=== PATIENT | male | born 1965 | race African-American/Black ===

== ENCOUNTER → 2018-02-21 | Day surgery (SDC) | payer OTHER ==
[~2018-02-21] MED LIST: BUPIVACAINE HCL 0.5 % INJ/PF 30 ML SDV ONE; LIDOCAINE 1% INJ-PF (10 MG/ML) 30 ML SDV ONE; LIDOCAINE 2% INJ (20 MG/ML) 20 ML MDV ONE; METHYLPREDNISOLONE ACETATE INJ 40 MG/1 ML ML ONE
--- NOTE | 2018-02-21 11:33 | Operative Report ---
PREOPERATIVE DIAGNOSIS: Lumbar Spondylosis without myelopathy POSTOPERATIVE DIAGNOSIS: Lumbar Spondylosis without myelopathy PROCEDURE: Radiofrequency Ablation of medial branches - RT L4 dorsal primary ramus of L5. LT L4 Dorsal primary ramus of L5. DATE OF PROCEDURE: 02/21/2018 ANESTHESIA: Local COMPLICATIONS: None CONSENT: A full description of the procedure was provided including benefits as well as possible complications. All questions were answered and informed consent was given and signed. ASA guidelines for fasting were verified prior to sedation. PROCEDURE IN DETAIL The patient was brought into the fluoroscopy suite and positioned into the prone position on the fluoroscopy table and allowed to adjust to a position of comfort. A grounding pad was placed on the Left thigh. The lumbar region was widely prepped with a chloraprep solution, allowed to air dry and draped in standard sterile surgical fashion. Local anesthesia was provided by 1 mL of 1% lidocaine delivered with a 25 g needle. A 17g 75 mm radiofrequency introducer needle was placed to the planned anatomic targets guided with intermittent fluoroscopy with a perpendicular approach to terminally place at the junction of the superior articular process and the transverse process of the RIGHT L5 and the base of the sacral ala on the RIGHT for the L5 medial branch nerve. The stylets were removed and radiofrequency probes with a 4mm active tip were then inserted. Needle tip position of the probes was verified in the AP, oblique, and lateral views. At each site, the medial branch nerve was stimulated at 2 Hz to a maximum 1-2 volts determined to finalize safe needle and electrode placement. The patient was awake and responsive during this portion of the procedure. Each target was anesthetized with 1-2 mL of 2% lidocaine for anesthesia for lesioning and then each target was lesioned at 80 degrees Celsius for 2 minutes and 30 seconds. Tissue impedences were noted to be between 250 and 500 Ohms. Electrodes and were then removed and 1mL of a solution containing 40mg depomedrol + 0.5% bupivacaine was infiltrated through the needles. The needles were subsequently removed. Attention was then turned to the opposite side where the procedure was performed in the exact same fashion. Bandages placed over the needle placement sites, the patient then returned to the supine position on a stretcher and transported to the recovery room without hemodynamic, neurologic, or allergic reactions. Fluoroscopic images were printed for hard copy recording and digitally archived. POST PROCEDURE EVALUATION: The patient was comfortable in the recovery room. The patient is aware that pain may worsen before remitting and 4 - 6 weeks may be required prior to the onset of pain relief. IMPRESSION: 1. Technically successful Bilateral L4 L5 medial branch radiofrequency neurotomy for denervation bilaterally without complication. 2. RTC in 2 weeks. 3. Estimated Blood Loss: none
== END ==
LOC: RAD 09:31
PROVIDERS: ATTEND Pain Medicine Interventional Pain Medicine
PROC: 3E0T3TZ Introduction of Destructive Agent into Peripheral Nerves and Plexi, Percutaneous Approach (ICD-10-PCS; principal; 2018-02-21)
DX: M47.816 Spondylosis without myelopathy or radiculopathy, lumbar region (principal)
CPT/HCPCS: 64635 ×2; 64636 ×2; J3490 ×3; J1020

== ENCOUNTER 2019-01-26 18:49 | Emergency (ER) | payer OTHER | END 2019-01-26 23:00 | disposition left against medical advice (07) | LOC: ER 18:49 | DX: Z53.21 Procedure and treatment not carried out due to patient leaving prior to being seen by health care provider (principal); M79.676 Pain in unspecified toe(s) ==

== ENCOUNTER 2019-01-27 07:09 | Emergency (ER) | payer OTHER ==
--- NOTE | 2019-01-27 08:06 | ER Document Report ---
ED General - General Chief Complaint: Toe Injury Stated Complaint: TOE PAIN Time Seen by Provider: 01/27/19 07:36 Primary Care Provider: NORRIS MCGRAW MD [ACTIVE STAFF] - Follow up as needed TRAVEL OUTSIDE OF THE [place] IN LAST 30 DAYS: No - HPI Notes: Patient presents to the emergency department for evaluation of right toe pain. It has been going on for the last several days. He states his been so bad he has been limping. He states he feels as if it is locking up, but it is not actually locked up. He denies any injuries. No fevers or chills. No warmth. No tenderness to light palpation. No history of gout. - Related Data Allergies/Adverse Reactions: No Known Allergies Allergy (Verified 01/27/19 07:10) Past Medical History - General Information source: Patient - Social History Smoking Status: Never Smoker Family History: Reviewed & Not Pertinent Past Surgical History: Reports: Hx Orthopedic Surgery - pec muscle surgery Review of Systems - Review of Systems Constitutional: No symptoms reported EENT: No symptoms reported Cardiovascular: No symptoms reported Respiratory: No symptoms reported Gastrointestinal: No symptoms reported Genitourinary: No symptoms reported Musculoskeletal: See HPI Skin: No symptoms reported Neurological/Psychological: No symptoms reported Physical Exam - Vital signs Vitals: Temp Pulse Resp BP Pulse Ox 98.6 F 77 16 157/96 H 98 01/27/19 07:14 01/27/19 07:14 01/27/19 07:14 01/27/19 07:14 01/27/19 07:14 Interpretation: Hypertensive - Notes Notes: Patient is awake and alert, no acute distress. Exam is limited to the area of chief complaint. Examination of the right lower extremity is no obvious signs of trauma. No edema, no posterior calf tenderness. Dorsalis pedis and posterior tibial pulse are 2+. Sensation is intact, capillary refill is brisk. Very minimal tenderness to palpation of the first metatarsal phalangeal joint, and pain is reproduced with flexion. No pallor, no rubor. Capillary refill is brisk. Course - Re-evaluation Re-evalutation: 01/27/19 09:54 Patient presents emergency department for evaluation of first metatarsophalangeal joint pain. His findings are not consistent with gout so imaging was ordered. Imaging reveals degenerative changes. We will send him home on anti-inflammatories. Given his age we will send on Mobic. Told to wear supportive shoes. He is to follow-up with primary care, return to emergency department for worsening or new concerning symptoms. - Vital Signs Vital signs: Temp Pulse Resp BP Pulse Ox 98.6 F 69 16 136/91 H 97 01/27/19 07:14 01/27/19 09:49 01/27/19 07:14 01/27/19 09:49 01/27/19 09:49 Discharge - Discharge Clinical Impression: Osteoarthritis of first metatarsophalangeal (MTP) joint of right foot Condition: Stable Disposition: HOME, SELF-CARE Instructions: Osteoarthritis ([facility]) Additional Instructions: Wear supportive shoes. Take medication as prescribed, preferably with food. Follow-up with your doctor next week. Return to the emergency department for worsening or new concerning symptoms. Referrals: NORRIS MCGRAW MD [ACTIVE STAFF] - Follow up as needed
--- NOTE | 2019-01-27 08:25 | RADIOLOGY REPORT (SQ) ---
EXAM DESCRIPTION: FOOT RIGHT COMPLETE COMPLETED DATE/TIME: 01/27/2019 8:04 am REASON FOR STUDY: pain 1st MTP COMPARISON: None. NUMBER OF VIEWS: Three views. TECHNIQUE: AP, lateral and oblique radiographic images acquired of the right foot. LIMITATIONS: None. FINDINGS: MINERALIZATION: Normal. BONES: No acute fracture or dislocation. No worrisome bone lesions. JOINTS: No effusions. There is mild arthrosis of the right 1st metatarsophalangeal joint with subcho ndral cyst formation. SOFT TISSUES: No soft tissue swelling. No foreign body. OTHER: No other significant finding. IMPRESSION: No fracture or dislocation of the right foot. There is mild arthrosis of the right 1st metatarsophalangeal joint with degenerative subchondral cyst formation. TECHNICAL DOCUMENTATION: JOB ID: [id number] [employer]- All Rights Reserved Reading location - IP/workstation name: [email or web address]
[2019-01-27 09:50] VITALS: BP 136/91
== END 2019-01-27 10:21 | disposition home or self-care (01) ==
LOC: ER 07:09
DX: M19.071 Primary osteoarthritis, right ankle and foot (principal); M25.571 Pain in right ankle and joints of right foot
CPT/HCPCS: 99283

== ENCOUNTER → 2019-12-25 | Day surgery (SDC) | payer OTHER ==
[~2019-12-25] MED LIST changes: -LIDOCAINE 1% INJ-PF (10 MG/ML) 30 ML SDV ONE
--- NOTE | 2019-12-25 13:00 | Operative Report ---
PREOPERATIVE DIAGNOSIS: Lumbar Spondylosis POSTOPERATIVE DIAGNOSIS: Lumbar Spondylosis PROCEDURE: Radiofrequency Ablation of medial branches - RT L4 dorsal primary ramus of L5. LT L4 Dorsal primary ramus of L5. DATE OF PROCEDURE: 12/25/2019 ANESTHESIA: local COMPLICATIONS: None CONSENT: A full description of the procedure was provided including benefits as well as possible complications. All questions were answered and informed consent was given and signed. ASA guidelines for fasting were verified prior to sedation. PROCEDURE IN DETAIL The patient was brought into the fluoroscopy suite and positioned into the prone position on the fluoroscopy table and allowed to adjust to a position of comfort. A grounding pad was placed on the left thigh. The lumbar region was widely prepped with a chloraprep solution, allowed to air dry and draped in standard sterile surgical fashion. Local anesthesia was provided by 1 mL of 1 % lidocaine delivered with a 25 g needle. A 17g 50mm radiofrequency introducer needle was placed to the planned anatomic targets guided with intermittent fluoroscopy with a perpendicular approach to terminally place at the junction of the superior articular process and the transverse process of the left L5 and the base of the sacral ala on the left for the L5 medial branch nerve. The stylets were removed and radiofrequency probes with a 4mm active tip were then inserted. Needle tip position of the probes was verified in the AP, oblique, and lateral views. At each site, the medial branch nerve was stimulated at 2 Hz to a maximum 1-2 volts determined to finalize safe needle and electrode placement. The patient was awake and responsive during this portion of the procedure. Each target was anesthetized with 1-2 mL of 2 % lidocaine for anesthesia for lesioning and then each target was lesioned at 80 degrees Celsius for 2 minutes and 30 seconds. Tissue impedences were noted to be between 250 and 500 Ohms. Electrodes were withdrawn and each site was infiltrated with 1 mL of a solution containing 0.25% bupivacaine with 40 mg Depo-Medrol. [place] were then removed. Attention was then turned to the opposite side where the procedure was performed in identical fashion. Then, bandages were placed over the needle placement sites, the patient then returned to the supine position on a stretcher and transported to the recovery room without hemodynamic, neurologic, or allergic reactions. Fluoroscopic images were printed for hard copy recording and digitally archived. POST PROCEDURE EVALUATION: The patient was comfortable in the recovery room. The patient is aware that pain may worsen before remitting and 4 - 6 weeks may be required prior to the onset of pain relief. IMPRESSION: 1. Technically successful bilateral L4 L5 medial branch radiofrequency neurotomy for denervation without complication. 2. RTC in 3 weeks. 3. Estimated Blood Loss: None
== END ==
LOC: RAD 10:15
PROVIDERS: ATTEND Pain Medicine Interventional Pain Medicine
DX: M47.816 Spondylosis without myelopathy or radiculopathy, lumbar region (principal)
CPT/HCPCS: 64635; 64636; J3490 ×2; J1030